=== PATIENT | male | born 1960 | race Caucasian/White ===

== ENCOUNTER → 2016-06-29 | Outpatient (CLI) | payer OTHER ==
[~2016-06-29] MED LIST: ACET-749 PO; ASPI-391 PO; CALCTAB7 PO; CIPR1TAB10 PO; CLC100 PO; DIPH25CA5 PO; DTR5 PO; LISI-725 PO; MULT-506 PO; PSYL58.636 PO; SILD1TAB11 PO; SIMV20TA2 PO; TADA10TA PO; VITACAP37; [UNRECOGNIZED DRUG - OTHER] PO
[2016-06-29 11:36] LABS: ALT/SGPT 30 U/L (12-78); BLOOD UREA NITROGEN 16 mg/dl (7-18); BUN/CREATININE RATIO 15.9 (10-20); CALCIUM 8.9 mg/dl (8.5-10.1); CARBON DIOXIDE 26 mmol/L (21-32); CHLORIDE 107 mmol/L (98-107); CHOLESTEROL 221 mg/dl (0-200); GLUCOSE 89 mg/dl (70-99); POTASSIUM 3.9 mmol/L (3.5-5.1); SODIUM 142 mmol/L (136-145); TRIGLYCERIDES 183 mg/dl (0-150); VERY LOW DENSITY LIPOPROT CALC 37 mg/dl
[2016-06-29 11:46] LABS: ALKALINE PHOSPHATASE 94 U/L (45-117); AST/SGOT 21 U/L (15-37); CHOLESTEROL/HDL RATIO 4.3; HDL CHOLESTEROL 52 mg/dl; LDL CHOLESTEROL CALCULATED 132 mg/dl; PROSTATE SPECIFIC ANTIGEN < 0.010 ng/ml (0.000-4.000)
== END | disposition home or self-care (01) ==
LOC: C.LABBC 08:06
PROVIDERS: ATTEND Internal Medicine Geriatric Medicine
DX: C61 Malignant neoplasm of prostate (principal); E78.5 Hyperlipidemia, unspecified

== ENCOUNTER → 2016-09-15 | Outpatient (CLI) | payer OTHER ==
[~2016-09-15] MED LIST changes: +BND25 PO; -CALCTAB7 PO; -DIPH25CA5 PO; -PSYL58.636 PO; -SIMV20TA2 PO; -VITACAP37
== END | disposition home or self-care (01) ==
LOC: C.LABBC 11:08
PROVIDERS: ATTEND Urology
DX: C61 Malignant neoplasm of prostate (principal)

== ENCOUNTER → 2016-10-24 | Outpatient (CLI) | payer OTHER ==
[~2016-10-24] MED LIST changes: -BND25 PO; +CALCTAB7 PO; -CIPR1TAB10 PO; +DIPH25CA5 PO; +PSYL58.636 PO; +SIMV20TA2 PO; +VITACAP37
[2016-10-24 11:18] LABS: CHOLESTEROL/HDL RATIO 4.7
== END | disposition home or self-care (01) ==
LOC: C.LABBC 08:33
PROVIDERS: ATTEND Physician Assistant Medical
DX: E78.5 Hyperlipidemia, unspecified (principal)

== ENCOUNTER → 2017-01-29 | Outpatient (CLI) | payer OTHER ==
[~2017-01-29] MED LIST changes: +BND25 PO; -CALCTAB7 PO; -DIPH25CA5 PO; -PSYL58.636 PO; -SIMV20TA2 PO; -VITACAP37
== END | disposition home or self-care (01) ==
LOC: C.LABBC 08:40
PROVIDERS: ATTEND Urology
DX: C61 Malignant neoplasm of prostate (principal); N52.9 Male erectile dysfunction, unspecified

== ENCOUNTER → 2017-02-01 | Outpatient (CLI) | payer OTHER | END | disposition home or self-care (01) | LOC: C.LABBC 08:47 | PROVIDERS: ATTEND Urology | DX: C61 Malignant neoplasm of prostate (principal) ==

== ENCOUNTER → 2017-05-02 | Outpatient (CLI) | payer OTHER ==
[~2017-05-02] MED LIST changes: -ACET-749 PO; -BND25 PO; -CLC100 PO; +DIPH25CA5 PO; -DTR5 PO; +PSYL58.636; +SIMV20TA2 PO; +VITACAP37
[2017-05-02 11:26] LABS: CHOLESTEROL/HDL RATIO 4.5
== END | disposition home or self-care (01) ==
LOC: C.LABBC 08:36
PROVIDERS: ATTEND Physician Assistant Medical
DX: E78.5 Hyperlipidemia, unspecified (principal)

== ENCOUNTER → 2017-07-03 | Outpatient (CLI) | payer OTHER ==
[~2017-07-03] MED LIST changes: +CALCTAB7 PO; -PSYL58.636; +PSYL58.636 PO
== END | disposition home or self-care (01) ==
LOC: C.LABBC 09:26
PROVIDERS: ATTEND Physician Assistant Medical
DX: C61 Malignant neoplasm of prostate (principal)

== ENCOUNTER → 2017-07-05 | Outpatient (CLI) | payer OTHER ==
[~2017-07-05] MED LIST changes: +IBUP-103 PO
--- NOTE | 2017-07-05 16:14 | DIAGNOSTIC IMAGING REPORT ---
R SHOULDER MIN 2 VIEWS ROUTINE CLINICAL HISTORY: Right shoulder pain. COMPARISON: None FINDINGS: Alignment of the right shoulder is anatomic. There is moderate joint space narrowing with moderate osteophytosis of the right glenohumeral joint. There is mild acromioclavicular joint osteoarthritis. Note is made of a 2.2 cm subchondral focus of sclerosis within the superior medial right humeral head. There is no acute fracture. IMPRESSION: 1. 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 2. 2.2 cm subchondral sclerotic focus within the right humeral head. While nonspecific, this may reflect developing avascular necrosis or an osteochondral lesion. Electronically signed by: Tato Suarez M.D. 07/05/2017 4:12 PM Dictated Date/Time: 07/05/2017 4:07 PM
== END | disposition home or self-care (01) ==
LOC: C.RAD 15:31
PROVIDERS: ATTEND Nurse Practitioner Adult Health
DX: M25.519 Pain in unspecified shoulder (principal); M19.011 Primary osteoarthritis, right shoulder; M89.9 Disorder of bone, unspecified

== ENCOUNTER → 2017-07-05 | Outpatient (CLI) | payer OTHER ==
--- NOTE | 2017-07-05 16:00 | DIAGNOSTIC IMAGING REPORT ---
PELVIS 1 OR 2 VIEW ROUTINE CLINICAL HISTORY: C61, M25.551 pain COMPARISON: None. DISCUSSION: The bones and joint spaces appear intact. There is no evidence of fracture, dislocation or bony disease. There is no evidence for soft tissue swelling. IMPRESSION: Negative study. The above report was generated using voice recognition software. It may contain grammatical, syntax or spelling errors. Electronically signed by: Paulie Wolfe M.D. 07/05/2017 3:59 PM Dictated Date/Time: 07/05/2017 3:59 PM
== END | disposition home or self-care (01) ==
LOC: C.RAD 15:32
PROVIDERS: ATTEND Physician Assistant Medical
DX: C61 Malignant neoplasm of prostate (principal); M25.551 Pain in right hip

== ENCOUNTER → 2017-07-05 | Outpatient (CLI) | payer OTHER ==
[2017-07-05 14:12] VITALS: BP 147/74; PULSE 88; TEMP 36.8; O2SAT 97
--- NOTE | 2017-07-05 16:15 | Radiation Oncology Follow-Up ---
Radiation Oncology Follow-Up Date of Visit Jul 05, 2017. Reason For Visit One-month follow-up Radiation Completion Date finished 05-16-2017 Diagnosis (1) Prostate cancer Onset Date: 07/22/2013 Permanent Comment: - Elevated PSA of 6.49 - 03/21/2013 - Biopsy of prostate gland reveals Kirtland 3+4 prostate adenocarcinoma - 2013 - Repeat biopsy of prostate gland reveals [place]land 3+3 prostate adenocarcinoma - 05/12/2014 - PSA rises a 12.7 on 09/09/2015 - Repeat biopsy of prostate gland reveals prostate adenocarcinoma Kirtland 4+4 - 11/02/2015 - Seen at [facility] in [place], [place] - Received neoadjuvant Casodex/Lupron for 3 months; outside MRI reveals potential seminal vesicle invasion - Radical Prostatectomy - 04/04/16 (Dr. Guerrier) - Rising PSA in 08/2016 to 0.05 - Elevated PSA to 0.178 on 02/01/2017 Initiation of hormonal suppression 02/20/2017 Status post completion of radiation therapy 05/16/2017. He received 6840 cGy. Last Edited By: Angle Moss on May 28, 2017 16:40 History of Present Illness Mr. Cordova is a 56-year-old gentleman who initially presented with an elevated PSA of 6.49 in February 2013. The patient then subsequently underwent biopsies of the prostate gland June 2013 (Kirtland 3+4 prostate adenocarcinoma ), April 2014 (Kirtland 3+3 prostate adenocarcinoma). He then presented with an elevated PSA of 12.7 on 09/09/2015 and then had a repeat biopsy on 2015 which revealed prostate adenocarcinoma that was Kirtland 4+4. The patient did seek out several second opinion consultations including [facility] and the [place] [facility] in [facility]. The patient states that he did have full diagnostic imaging studies including an MRI of the pelvis (imaging scans and reports are unavailable) which did reveal potential seminal vesicle invasion. The patient elected to undergo complete androgen blockade utilizing Casodex/ Lupron for 3 months underneath the supervision of Dr. Calderon. The patient then proceeded to undergo a radical prostatectomy on 04/04/[address] Rogelio Guerrier which revealed prostate adenocarcinoma (Trudy score could not be assessed due to neoadjuvant therapy); the margins were negative, there was no evidence of seminal vesicle invasion or extraprostatic extension. Bilateral pelvic lymph node sampling revealed no evidence of disease. The patient's PSA did go to undetectable by April 2016. More recently, the patient's PSA was elevated to 0.050 on 10/26/2016, 0.175 on 01/29/[address] Guerrier has referred the patient to us for consideration of salvage radiation therapy. He completed radiation therapy 05/16/2017. He received 6840 cGy. Interim History Patient returns today for one month follow-up. He has noted pain of the right hip/buttock area since the completion of radiation therapy. He states that the pain can be up to a level 7 to 8. This is worse in the morning. After he gets up and begins moving around the pain resolves. Walking helps to decrease the pain. Pain of the buttock area radiates down the posterior thigh. He'll take ibuprofen in the morning. He does not have to take any further pain medication throughout the day. The pain is minimal in the evening. If he is sitting and leans forward he'll feel pain in the posterior thigh. He had a recheck PSA . That was found to be 0.011. Allergies Coded Allergies: No Known Allergies (Unverified , 04/04/16) Home Medications Scheduled Pvoenix-Jwmxjzvtvrpmf-Ytsjrole (Excedrin Extra Strength), 1 TAB PO DIRECTED Calcium Carbonate-Vitamin D W/ (Caltrate 600 Plus), 1 TAB PO DAILY Diphenhydramine Hcl (Benadryl), 25 MG PO HS Ibuprofen Tab (Advil), 200 MG PO DAILY Lisinopril (Zestril), 20 MG PO BID Multivitamin (Multivitamin), 1 TAB PO QAM Psyllium (Metamucil Fiber), 1 TBS PO DAILY Simvastatin (Zocor), 20 MG PO QPM Tadalafil (Cialis), 5 MG PO UD Vitamin E (E-400), 1 TAB DAILY [[employer] food], 6 TABS PO DAILY Review of Systems Gastrointestinal: Symptoms: WNL Oral: Symptoms: No Problems Respiratory: Symptoms: WNL Urinary: Symptoms: Nocturia Comments: nocturia times 0 - 3 Skin: Symptoms: No Problems Physical Exam Vital Signs Date Time Temp Pulse Resp B/P (MAP) Pulse Ox O2 Delivery O2 Flow Rate FiO2 07/05/17 14:12 36.8 88 20 147/74 97 Fatigue: None General Appearance: no apparent distress Eyes: normal inspection, EOMI ENT: normal ENT inspection, hearing grossly normal Respiratory/Chest: lungs clear, no respiratory distress, no accessory muscle use Cardiovascular: regular rate, rhythm, no gallop, no murmur Extremities: + pedal edema Neurologic/Psychiatric: no motor/sensory deficits, alert, normal mood/affect Skin: warm/dry Additional Exam Notes: There is no pain in the lumbar spine or SI joint area. On the right he has very mild tenderness of the ischial tuberosity. Pain Management Patient Reports Pain: Yes Side: Right Pain Location: right hip Patient Preferred Pain Scale: 0 - 10 Initial Pain Intensity: 2.0 Pain Management Plan Pain occurs mainly in the morning he'll take 2 Advil. He does not require any further pain medication throughout the day. Laboratory Laboratory Results: not applicable Pathology Pathology Results: not applicable Imaging Imaging Studies: were reviewed, and pertinent findings noted below, pending ( bone scan) Imaging Comments Patient: RJ CORDOVA Address1: [address] [place] [address] Rec: [id number] [id number] Zip: [place] [address] Date: 1960 Sex: M Room/Bed: Ref Phy: No Doctor, Assigned SC: JOHNATHON Att Phy: Angle Moss PA-C Report #: [id number] Silvia Phy: No Doctor, Assigned Test: PVS Admit Phy: Superintendent Building: [facility] Interpreting Phy: Paulie Wolfe M.D. Diagnosis: C61, M25.551 Ordering Phy: Angle Moss PA-C Service Date: 07/05/17 Admit Date: 07/05/17 MNE: [id number] CONF: DICTATED BY: Paulie Wolfe M.D.]] CC: Angle Moss PA-C No Doctor, Assigned Endcc: [~ rep ct add3]] PELVIS 1 OR 2 VIEW ROUTINE CLINICAL HISTORY: C61, M25.551 pain COMPARISON: None. DISCUSSION: The bones and joint spaces appear intact. There is no evidence of fracture, dislocation or bony disease. There is no evidence for soft tissue swelling. IMPRESSION: Negative study. The above report was generated using voice recognition software. It may contain grammatical, syntax or spelling errors. Electronically signed by: Paulie Wolfe M.D. 07/05/2017 3:59 PM Assessment & Plan Plan: Patient also seen and examined by Dr. Fontana today. X-ray of the pelvis was ordered as well as a bone scan. He'll be notified as to results. He may continue the Advil in the morning. He may need to follow-up with his primary care physician if he continues to have discomfort. He'll continue follow-up with Dr. Guerrier and have recheck PSAs. Follow-up appointment with our office was not given. Patient prefers to continue follow-up with Dr. Guerrier's office. He may call our office if he has any questions or concerns. Assessment & Plan (Attending) ADDENDUM: I agree with note created by Angle Moss PA-C. I reviewed the patient's chart and information with her. I have examined and evaluated the patient. I reviewed relevant clinical information and answered the patient's and /or family's questions. [employer] Total Time In Follow-Up I spent 20 minutes speaking to the patient performing examination. I spent 15 minutes reviewing information and completing this note. AK Total Time (Attending) In Follow-Up I spent 15 minutes examining and counseling the patient. [employer] Copy To Rogelio Guerrier M.D.
== END | disposition home or self-care (01) ==
LOC: C.ONC 14:03
PROVIDERS: ATTEND Physician Assistant Medical
DX: Z08 Encounter for follow-up examination after completed treatment for malignant neoplasm (principal); Z92.3 Personal history of irradiation; Z85.46 Personal history of malignant neoplasm of prostate

== ENCOUNTER → 2017-07-09 | Outpatient (CLI) | payer OTHER ==
[~2017-07-09] MED LIST changes: -SILD1TAB11 PO
--- NOTE | 2017-07-09 15:56 | DIAGNOSTIC IMAGING REPORT ---
BONE SCAN WHOLE BODY CLINICAL HISTORY: PROSTATE CA COMPARISON STUDY: 11/19/2015 FINDINGS: The patient was injected with 28 mCi of technetium 99m MDP. Three-hour delayed whole body images were acquired. There is slight increased activity within the left shoulder, unchanged from the prior study and likely degenerative/arthritic. There are no foci of increased activity viewed as suspicious for prostatic disease. IMPRESSION: No bone scan evidence for skeletal metastasis.. Electronically signed by: Faraz Colón M.D. 07/09/2017 3:54 PM Dictated Date/Time: 07/09/2017 3:53 PM
== END | disposition home or self-care (01) ==
LOC: C.NUCL 11:31
PROVIDERS: ATTEND Physician Assistant Medical
DX: C61 Malignant neoplasm of prostate (principal)

== ENCOUNTER → 2017-07-10 | Outpatient (CLI) | payer OTHER ==
--- NOTE | 2017-07-10 17:37 | DIAGNOSTIC IMAGING REPORT ---
R UPPER EXT JOINT WITHOUT CLINICAL HISTORY: M25.519 Shoulder painAbnormal right shoulder x-ray findingMRIRig pain TECHNIQUE: MRI multi axial acquisition COMPARISON STUDY: Right shoulder series 07/05/2017 FINDINGS: Degenerative changes of glenohumeral joint. Subchondral sclerosis. To be on a degenerative basis. Several degenerative subchondral cysts adjacent to the lateral humeral supraspinatus tendon insertion. Moderate degenerative tendinopathy of the rotator cuff including all major components of that structure. Very small joint effusion. Probable partial tears versus a deterioration of the inferior surface of the supraspinatus as well as infraspinatus tendons. Moderate tendinopathy of the subscapularis. Biceps tendon is intact within the bicipital groove. Very small joint effusion. No significant subdeltoid fluid. IMPRESSION: 1. Moderate degenerative generalized degenerative changes of glenohumeral joint as well as rotator cuff. 2. Generalized tendinopathy of the rotator cuff with several small partial tears. 3. No evidence for full-thickness rotator cuff tear. 4. Moderate generalized deterioration of the glenoid labrum. 5. Small joint effusion suggesting mild bursitis. The above report was generated using voice recognition software. It may contain grammatical, syntax or spelling errors. Electronically signed by: Paulie Wolfe M.D. 07/10/2017 5:36 PM Dictated Date/Time: 07/10/2017 5:33 PM
== END | disposition home or self-care (01) ==
LOC: C.MRI 16:10
PROVIDERS: ATTEND Nurse Practitioner Adult Health
DX: M19.011 Primary osteoarthritis, right shoulder (principal); M75.81 Other shoulder lesions, right shoulder; M25.411 Effusion, right shoulder